=== PATIENT | male | born 1945 | race Caucasian/White ===

== ENCOUNTER 2016-08-21 08:17 | Inpatient (IN) | payer MEDICARE, BC ==
[2016-08-21] MEDS ORDERED: ASPIRIN 81 MG CHEW PO STA (08:41)
[2016-08-21] MEDS ORDERED: SODIUM CHLORIDE 0.9% 1,000 ML IV STA (08:42)
--- NOTE | 2016-08-21 08:44 | ED ---
General Adult HPI - General Source: patient, RN notes reviewed Mode of arrival: EMS Limitations: no limitations <Henrry Hogue - Last Filed: 08/21/16 08:56> <Ra Long - Last Filed: 08/21/16 14:43> - General Chief complaint: Chest Pain Stated complaint: chest pain Time Seen by Provider: 08/21/16 08:36 - History of Present Illness Initial comments: Patient 70-year-old male who presents emergency room today by EMS, chest pain times one day. He does admit the pain was off and on yesterday. States he woke up this morning having chest pain. States it as "sharp". States does radiate to the left arm across his chest. He does feel similar to a "heart attack" that he had in the past. Admits to occasional nausea. Patient denies any other symptoms or complaints. Patient denies any recent fever, chills, shortness of breath, back pain, abdominal pain, nausea or vomiting, numbness or tingling, dysuria or hematuria, constipation or diarrhea, headaches or visual changes, or any other complaints. (Henrry Hogue) - Related Data Home Medications Medication Instructions Recorded Confirmed Acetaminophen-Codeine 300-30mg 1 - 2 tab PO Q6H PRN 08/21/16 08/21/16 [Tylenol #3] Acyclovir 400 mg PO 5XD 08/21/16 08/21/16 Atorvastatin [Lipitor] 20 mg PO DAILY 08/21/16 08/21/16 Lisinopril [Prinivil] 5 mg PO DAILY 08/21/16 08/21/16 Metoprolol Tartrate [Lopressor] 25 mg PO BID 08/21/16 08/21/16 Allergies Allergy/AdvReac Type Severity Reaction Status Date / Time No Known Allergies Allergy Verified 08/21/16 10:55 Review of Systems ROS Other: All systems not noted in ROS Statement are negative. <Henrry Hogue - Last Filed: 08/21/16 08:56> ROS Other: All systems not noted in ROS Statement are negative. <Ra Long - Last Filed: 08/21/16 14:43> ROS Statement: Those systems with pertinent positive or pertinent negative responses have been documented in the HPI. Past Medical History Past Medical History: Chest Pain / Angina, Myocardial Infarction ([place]) History of Any Multi-Drug Resistant Organisms: None Reported Additional Past Surgical History / Comment(s): chest surgery, pt poor historian Past Psychological History: No Psychological Hx Reported Smoking Status: Former smoker Past Alcohol Use History: Occasional Past Drug Use History: None Reported <Henrry Hogue - Last Filed: 08/21/16 08:56> General Exam Limitations: no limitations <Henrry Hogue - Last Filed: 08/21/16 08:56> <Ra Long - Last Filed: 08/21/16 14:43> - General Exam Comments Initial Comments: General: The patient is awake and alert, in no distress. Cachectic appearance Eye: Pupils are equal, round and reactive to light, extra-ocular movements are intact. No nystagmus. There is normal conjunctiva bilaterally. No signs of icterus. Ears, nose, mouth and throat: There are moist mucous membranes and no oral lesions. Neck: The neck is supple, there is no tenderness or JVD. Cardiovascular: Jewett excavatum. There is a regular rate and rhythm. No murmur, rub or gallop is appreciated. Respiratory: Lungs are clear to auscultation, respirations are non-labored, breath sounds are equal. No wheezes, stridor, rales, or rhonchi. Gastrointestinal: [Soft, non-distended, non-tender abdomen without masses or organomegaly noted. There is no rebound or guarding present. No CVA tenderness. Bowel sounds are unremarkable.] Musculoskeletal: Normal ROM, no tenderness. Strength 5/5. Sensation intact. Pulses equal bilaterally 2+. Neurological: A&O x 3. CN II-XII intact, There are no obvious motor or sensory deficits. Coordination appears grossly intact. Speech is normal. Skin: Skin is warm and dry and no rashes or lesions are noted. Psychiatric: Cooperative, appropriate mood & affect, normal judgment. (Henrry Hogue) Course <Henrry Hogue - Last Filed: 08/21/16 08:56> <Ra Long - Last Filed: 08/21/16 14:43> Vital Signs 08/21/16 08/21/16 08/21/16 08:28 08:48 09:00 Temperature 96.9 F L Pulse Rate 99 114 H 111 H Pulse Rate [ 107 H [place] ] Respiratory 18 18 18 Rate Blood Pressure 84/47 134/67 128/64 O2 Sat by Pulse 100 100 100 Oximetry 08/21/16 08/21/16 08/21/16 09:02 10:00 11:00 Temperature Pulse Rate 111 H 108 H 108 H Pulse Rate [ [place] ] Respiratory 18 18 18 Rate Blood Pressure 128/64 112/64 110/63 O2 Sat by Pulse 100 98 97 Oximetry 08/21/16 08/21/16 08/21/16 12:00 12:03 12:16 Temperature Pulse Rate 110 H 112 H 110 H Pulse Rate [ [place] ] Respiratory 18 16 Rate Blood Pressure 125/61 O2 Sat by Pulse 97 Oximetry 08/21/16 13:00 Temperature Pulse Rate 110 H Pulse Rate [ [place] ] Respiratory 18 Rate Blood Pressure 145/69 O2 Sat by Pulse 98 Oximetry - Reevaluation(s) Reevaluation #1: 08/21/16 08:48 patient's repeat blood pressure taken by myself 134/67. He does admit to chest pain. Patient poor historian. Further information provided by nurse she spoke with EMS they did give sublingual nitro glycerin tab. They did also give aspirin. Patient still experiencing chest pain. Will Be given another sublingual nitro and reevaluated. Labs currently pending. EKG shows sinus tachycardia with occasional PVCs but no ST changes. (Henrry Hogue) EKG Findings - EKG Comments: EKG Findings:: EKG performed at 0851: Shows sinus tachycardia with PVCs. Ventricular rate 111 bpm. ID interval 120. QRS 102. QT/QTC 360/489. No acute ST changes. <Henrry Hogue - Last Filed: 08/21/16 08:56> Medical Decision Making <Henrry Hogue - Last Filed: 08/21/16 08:56> - Lab Data Result diagrams: 08/21/16 08:59 08/21/16 08:59 <Ra Long - Last Filed: 08/21/16 14:43> - Medical Decision Making Patient reevaluated and resting comfortably in bed. No complaints at this time except for chronic pain which he takes Tylenol with codeine. Patient and family updated on results and plan. Patient does meet sepsis criteria diagnosed at 2:35 PM. IV antibiotics will be ordered. Lactic acid has been added. Case discussed in detail with Dr. Mcdaniel, who will admit for Dr. Rogers. ( Ra Long) - Lab Data Lab Results 08/21/16 08/21/16 08/21/16 Range/Units 08:59 08:59 08:59 WBC 19.9 H (3.8-10.6) k/uL RBC 3.77 L (4.30-5.90) m/uL Hgb 11.9 L (13.0-17.5) gm/dL Hct 36.4 L (39.0-53.0) % MCV 96.6 (80.0-100.0) fL MCH 31.6 (25.0-35.0) pg MCHC 32.7 (31.0-37.0) g/dL RDW 14.9 (11.5-15.5) % Plt Count 269 (150-450) k/uL Neutrophils % 87 % Lymphocytes % 3 % Monocytes % 7 % Eosinophils % 0 % Basophils % 0 % Neutrophils # 17.3 H (1.3-7.7) k/uL Lymphocytes # 0.6 L (1.0-4.8) k/uL Monocytes # 1.4 H (0-1.0) k/uL Eosinophils # 0.0 (0-0.7) k/uL Basophils # 0.0 (0-0.2) k/uL Manual Slide Review Performed Poikilocytosis (manual Present PT (9.0-12.0) sec INR (<1.1) APTT (22.0-30.0) sec D-Dimer (<0.60) mg/L FEU Sodium 134 L (137-145) mmol/L Potassium 4.6 (3.5-5.1) mmol/L Chloride 102 (98-107) mmol/L Carbon Dioxide 14 L (22-30) mmol/L Anion Gap 18 mmol/L BUN 86 H* (9-20) mg/dL Creatinine 3.54 H (0.66-1.25) mg/dL Est GFR (MDRD) Af Amer 21 (>60 ml/min/1.73 sqM) Est GFR (MDRD) Non-Af 17 (>60 ml/min/1.73 sqM) Glucose 82 (74-99) mg/dL Calcium 8.7 (8.4-10.2) mg/dL Magnesium 2.8 H (1.6-2.3) mg/dL Total Bilirubin 0.6 (0.2-1.3) mg/dL AST 74 H (17-59) U/L ALT 36 (21-72) U/L Alkaline Phosphatase 126 (38-126) U/L Total Creatine Kinase 579 H (55-170) U/L CK-MB (CK-2) 12.9 H* (0.0-2.4) ng/mL CK-MB (CK-2) Rel Index 2.2 Troponin I 0.013 (0.000-0.034) ng/mL NT-Pro-B Natriuret Pep pg/mL Total Protein 6.5 (6.3-8.2) g/dL Albumin 2.9 L (3.5-5.0) g/dL Urine Color Urine Appearance (Clear) Urine pH (5.0-8.0) Ur Specific [place] (1.001-1.035) Urine Protein (Negative) Urine Glucose (UA) (Negative) Urine Ketones (Negative) Urine Blood (Negative) Urine Nitrite (Negative) Urine Bilirubin (Negative) Urine Urobilinogen (<2.0) mg/dL Ur Leukocyte Esterase (Negative) Urine RBC (0-5) /hpf Urine WBC (0-5) /hpf Urine WBC Clumps (None) /hpf Ur Squamous Epith Cells (0-4) /hpf Urine Bacteria (None) /hpf Hyaline Casts (0-2) /lpf Urine Mucus (None) /hpf 08/21/16 08/21/16 08/21/16 Range/Units 08:59 08:59 08:59 WBC (3.8-10.6) k/uL RBC (4.30-5.90) m/uL Hgb (13.0-17.5) gm/dL Hct (39.0-53.0) % MCV (80.0-100.0) fL MCH (25.0-35.0) pg MCHC (31.0-37.0) g/dL RDW (11.5-15.5) % Plt Count (150-450) k/uL Neutrophils % % Lymphocytes % % Monocytes % % Eosinophils % % Basophils % % Neutrophils # (1.3-7.7) k/uL Lymphocytes # (1.0-4.8) k/uL Monocytes # (0-1.0) k/uL Eosinophils # (0-0.7) k/uL Basophils # (0-0.2) k/uL Manual Slide Review Poikilocytosis (manual PT 9.8 (9.0-12.0) sec INR 1.0 (<1.1) APTT 27.9 (22.0-30.0) sec D-Dimer 5.58 H (<0.60) mg/L FEU Sodium (137-145) mmol/L Potassium (3.5-5.1) mmol/L Chloride (98-107) mmol/L Carbon Dioxide (22-30) mmol/L Anion Gap mmol/L BUN (9-20) mg/dL Creatinine (0.66-1.25) mg/dL Est GFR (MDRD) Af Amer (>60 ml/min/1.73 sqM) Est GFR (MDRD) Non-Af (>60 ml/min/1.73 sqM) Glucose (74-99) mg/dL Calcium (8.4-10.2) mg/dL Magnesium (1.6-2.3) mg/dL Total Bilirubin (0.2-1.3) mg/dL AST (17-59) U/L ALT (21-72) U/L Alkaline Phosphatase (38-126) U/L Total Creatine Kinase (55-170) U/L CK-MB (CK-2) (0.0-2.4) ng/mL CK-MB (CK-2) Rel Index Troponin I (0.000-0.034) ng/mL NT-Pro-B Natriuret Pep 39561 pg/mL Total Protein (6.3-8.2) g/dL Albumin (3.5-5.0) g/dL Urine Color Urine Appearance (Clear) Urine pH (5.0-8.0) Ur Specific [place] (1.001-1.035) Urine Protein (Negative) Urine Glucose (UA) (Negative) Urine Ketones (Negative) Urine Blood (Negative) Urine Nitrite (Negative) Urine Bilirubin (Negative) Urine Urobilinogen (<2.0) mg/dL Ur Leukocyte Esterase (Negative) Urine RBC (0-5) /hpf Urine WBC (0-5) /hpf Urine WBC Clumps (None) /hpf Ur Squamous Epith Cells (0-4) /hpf Urine Bacteria (None) /hpf Hyaline Casts (0-2) /lpf Urine Mucus (None) /hpf 08/21/16 Range/Units 11:20 WBC (3.8-10.6) k/uL RBC (4.30-5.90) m/uL Hgb (13.0-17.5) gm/dL Hct (39.0-53.0) % MCV (80.0-100.0) fL MCH (25.0-35.0) pg MCHC (31.0-37.0) g/dL RDW (11.5-15.5) % Plt Count (150-450) k/uL Neutrophils % % Lymphocytes % % Monocytes % % Eosinophils % % Basophils % % Neutrophils # (1.3-7.7) k/uL Lymphocytes # (1.0-4.8) k/uL Monocytes # (0-1.0) k/uL Eosinophils # (0-0.7) k/uL Basophils # (0-0.2) k/uL Manual Slide Review Poikilocytosis (manual PT (9.0-12.0) sec INR (<1.1) APTT (22.0-30.0) sec D-Dimer (<0.60) mg/L FEU Sodium (137-145) mmol/L Potassium (3.5-5.1) mmol/L Chloride (98-107) mmol/L Carbon Dioxide (22-30) mmol/L Anion Gap mmol/L BUN (9-20) mg/dL Creatinine (0.66-1.25) mg/dL Est GFR (MDRD) Af Amer (>60 ml/min/1.73 sqM) Est GFR (MDRD) Non-Af (>60 ml/min/1.73 sqM) Glucose (74-99) mg/dL Calcium (8.4-10.2) mg/dL Magnesium (1.6-2.3) mg/dL Total Bilirubin (0.2-1.3) mg/dL AST (17-59) U/L ALT (21-72) U/L Alkaline Phosphatase (38-126) U/L Total Creatine Kinase (55-170) U/L CK-MB (CK-2) (0.0-2.4) ng/mL CK-MB (CK-2) Rel Index Troponin I (0.000-0.034) ng/mL NT-Pro-B Natriuret Pep pg/mL Total Protein (6.3-8.2) g/dL Albumin (3.5-5.0) g/dL Urine Color Yellow Urine Appearance Cloudy (Clear) Urine pH 5.5 (5.0-8.0) Ur Specific [place] 1.011 (1.001-1.035) Urine Protein 1+ H (Negative) Urine Glucose (UA) Negative (Negative) Urine Ketones 1+ H (Negative) Urine Blood Small H (Negative) Urine Nitrite Negative (Negative) Urine Bilirubin Negative (Negative) Urine Urobilinogen <2.0 (<2.0) mg/dL Ur Leukocyte Esterase Large H (Negative) Urine RBC 5 (0-5) /hpf Urine WBC 127 H (0-5) /hpf Urine WBC Clumps Many H (None) /hpf Ur Squamous Epith Cells 1 (0-4) /hpf Urine Bacteria Rare H (None) /hpf Hyaline Casts 1 (0-2) /lpf Urine Mucus Rare H (None) /hpf Disposition <Henrry Hogue - Last Filed: 08/21/16 08:56> <Ra Long - Last Filed: 08/21/16 14:43> Clinical Impression: Chest pain, Renal failure, acute, Sepsis, Urinary tract infection Disposition: ADMITTED IP TO THIS HOSP Condition: Serious
[2016-08-21] MEDS ORDERED: NITROGLYCERIN SL TABS 0.4 MG TAB SUBLINGUAL PRN ×2 (08:55→14:43)
[2016-08-21 09:22] LABS: Basophils % (A) 0 %; CH 31.2; CHCM 32.5; Eosinophils % (A) 0 %; HCT 36.4 % (39.0-53.0); HDW 2.39; HGB 11.9 gm/dL (13.0-17.5); Luc # (Auto) 0.66; Luc % (Auto) 3; Lymphocytes # (A) 0.6 k/uL (1.0-4.8); Lymphocytes % (A) 3 %; MCH 31.6 pg (25.0-35.0); MCHC 32.7 g/dL (31.0-37.0); MCV 96.6 fL (80.0-100.0); Mean Platelet Volume 8.2; Monocytes # (A) 1.4 k/uL (0-1.0); Monocytes % (A) 7 %; Neutrophils # (A) 17.3 k/uL (1.3-7.7); Neutrophils % (A) 87 %; RBC 3.77 m/uL (4.30-5.90); RDW 14.9 % (11.5-15.5); WBC 19.9 k/uL (3.8-10.6); WBC (Perox) 19.32
[2016-08-21 09:26] LABS: Partial Thromboplastin Time 27.9 sec (22.0-30.0); Prothrombin Time 9.8 sec (9.0-12.0)
[2016-08-21 09:30] LABS: Calcium 8.7 mg/dL (8.4-10.2); Magnesium 2.8 mg/dL (1.6-2.3); Potassium 4.6 mmol/L (3.5-5.1); Total Bilirubin 0.6 mg/dL (0.2-1.3); Total Protein 6.5 g/dL (6.3-8.2)
--- NOTE | 2016-08-21 09:54 | XR ---
EXAMINATION TYPE: XR chest 2V DATE OF EXAM: 08/21/2016 9:36 AM COMPARISON: NONE HISTORY: Chest pain TECHNIQUE: Frontal and lateral views of the chest are obtained. FINDINGS: There are overlying cardiac leads. The heart is enlarged. No pneumothorax or pleural effus ion. Right costophrenic angle is not included on the exam. There may be some minimal basilar atelecta sis. Patient is rotated. Prominent lung volumes may be indicative of underlying COPD. IMPRESSION: Heart size may be accentuated by rotation. Some minimal basilar atelectasis is suspected , follow-up as indicated.
[2016-08-21 09:57] LABS: Troponin I 0.013 ng/mL (0.000-0.034)
[2016-08-21 10:04] LABS: Creatine Kinase MB 12.9 ng/mL (0.0-2.4)
[2016-08-21 10:24] LABS: Manual Review Performed
[2016-08-21] MEDS ORDERED: IPRATROPIUM-ALBUTEROL 3 ML NEB INHALATION STA (11:09)
[2016-08-21 13:50] LABS: Appearance,Urine Cloudy (Clear); Bacteria,Urine Rare /hpf; Bilirubin,Urine Negative (Negative); Glucose,Urine (UA) Negative (Negative); Ketones,Urine 1+ (Negative); Leukocyte Esterase,Urine Large (Negative); Mucus,Urine Rare /hpf; Nitrite,Urine Negative (Negative); PH, Urine 5.5 (5.0-8.0); Particle Count 19766; Protein,Urine 1+ (Negative); RBC,Urine 5 /hpf (0-5); Specific Gravity,Urine 1.011 (1.001-1.035); Squamous Epithelial Cell,Urine 1 /hpf (0-4); UA Billing (MACRO vs. MICRO) MICRO; Urobilinogen,Urine <2.0 mg/dL (<2.0); WBC,Urine 127 /hpf (0-5)
--- NOTE | 2016-08-21 14:29 | NM ---
EXAMINATION TYPE: NM pul vent and perfuse DATE OF EXAM: 08/21/2016 2:01 PM COMPARISON: Chest x-ray 08/21/2016 HISTORY: Chest pain TECHNIQUE: Utilizing inhalation of 70.5 mCi Tc 99m DTPA aerosol and intravenous injection of 5.2 mCi of Tc 99m MAA, ventilation and perfusion images are acquired post injection in multiple projections. FINDINGS: Normal radiotracer distribution is noted in the lungs. There is no evidence of mismatched defects. IMPRESSION: Low probability for acute pulmonary embolism.
[2016-08-21] MEDS ORDERED: Acetaminophen-Codeine 300-30mg TAB PO STA (14:42)
[2016-08-21 15:51] LABS: Creatine Kinase 788 U/L (55-170)
[2016-08-21 16:03] LABS: Troponin I <0.012 ng/mL (0.000-0.034)
[2016-08-21 16:09] LABS: Creatine Kinase MB 15.6 ng/mL (0.0-2.4)
[2016-08-21 16:53] VITALS: BMI 16.6
[2016-08-21] MEDS: METOPROLOL TARTRATE 25 MG TAB PO SCH (19:54)
[2016-08-21] MEDS ORDERED: ATORVASTATIN 20 MG TAB PO SCH (21:00)
[2016-08-21] MEDS: NITROGLYCERIN OINT 1 INCH/GM PACKET TOPICAL SCH (21:14)
[2016-08-21 22:01] LABS: Troponin I 0.021 ng/mL (0.000-0.034)
[2016-08-21 22:06] LABS: Creatine Kinase MB 19.7 ng/mL (0.0-2.4)
[2016-08-22] MEDS: Acetaminophen-Codeine 300-30mg TAB PO PRN ×2 (00:20→06:27)
[2016-08-22] MEDS: NITROGLYCERIN OINT 1 INCH/GM PACKET TOPICAL SCH ×2 (00:21→09:27)
[2016-08-22] MEDS ORDERED: THIAMINE 100 MG/ML 2 ML VIAL IM STA (04:55)
[2016-08-22] MEDS ORDERED: LORazepam 2 MG/ML SYRINGE IV PRN ×3 (04:55)
[2016-08-22] MEDS ORDERED: HEPARIN SODIUM,PORCINE 5,000 UNIT/ML 1 ML VIAL SQ SCH ×2 (06:45→08:00)
[2016-08-22] MEDS ORDERED: SODIUM CHLORIDE 0.9% 1,000 ML IV SCH (06:45)
[2016-08-22] MEDS ORDERED: HEPARIN SODIUM,PORCINE 5,000 UNIT/ML 1 ML VIAL IV PRN (07:18)
[2016-08-22] MEDS ORDERED: HEPARIN SODIUM,PORCINE 5,000 UNIT/ML 1 ML VIAL IV ONE (07:18)
[2016-08-22] MEDS ORDERED: HEPARIN SODIUM,PORCINE/D5W PMX 25,000 UNIT in DEXTROSE/WATER 1 500ML.BAG IV SCH (07:30)
[2016-08-22 07:35] LABS: Calcium 9.1 mg/dL (8.4-10.2); Potassium 4.6 mmol/L (3.5-5.1)
[2016-08-22 07:50] LABS: Basophils % (A) 0 %; CHCM 31.5; Eosinophils % (A) 0 %; HCT 39.2 % (39.0-53.0); HDW 2.54; HGB 12.3 gm/dL (13.0-17.5); Luc # (Auto) 0.28; Luc % (Auto) 2; Lymphocytes % (A) 5 %; MCHC 31.3 g/dL (31.0-37.0); Macrocytosis Slight; Mean Platelet Volume 9.3; Monocytes # (A) 0.6 k/uL (0-1.0); Monocytes % (A) 3 %; Neutrophils # (A) 17.4 k/uL (1.3-7.7); Neutrophils % (A) 90 %; RBC 3.96 m/uL (4.30-5.90); WBC 19.3 k/uL (3.8-10.6)
[2016-08-22 08:17] LABS: INR 0.9 (<1.1); Partial Thromboplastin Time 29.3 sec (22.0-30.0); Prothrombin Time 9.7 sec (9.0-12.0)
[2016-08-22] MEDS ORDERED: WATER FOR INJECTION, STERILE 1,000 ML with SODIUM ACETATE 150 MEQ IV SCH ×2 (08:45)
[2016-08-22] MEDS: METOPROLOL TARTRATE 25 MG TAB PO SCH (08:46)
--- NOTE | 2016-08-22 08:47 | P.NPCON ---
History of Present Illness - Reason for Consult acute renal failure - History of Present Illness Reason for consultation: Acute kidney injury History of present illness: Patient is a 70-year-old male seen in renal consultation for acute kidney injury. Unclear as to what his baseline renal function is. His creatinine was 3.54 on admission yesterday and is 3.40 today. He is also extremely acidotic with bicarb level of 10 this morning. Patient presented to the hospital with chest pain. Initially his blood pressure was documented as 8447. He did receive IV fluids and is currently maintained on normal saline at 100 mL an hour. Hemodynamically he's been stable with systolic blood pressure in the 130s. Patient has history of heavy tobacco as well as alcohol abuse. He 's been drinking 12 pack daily. He is not a very reliable historian. He has been voiding. He went for a lower extremity ultrasound this morning and had a wet brief when he returned. No hematuria. He was maintained on lisinopril as an outpatient which is currently held. His home medication also has acyclovir listed for 5 days total unclear as to why he was taking it. No vomiting or diarrhea. I don't see NSAIDs listed his home medications. Vital signs are stable. General: The patient appeared well nourished and normally developed. HEENT: Head exam is unremarkable. Neck is without jugular venous distension. LUNGS: Lungs are clear to auscultation and percussion. Breath sounds decreased. HEART: Rate and Rhythm are regular. First and second heart sounds normal. No murmurs, rubs or gallops. ABDOMEN: Abdominal exam reveals normal bowel sounds. Non-tender and non- distended. No evidence of peritonitis. EXTREMITITES: No clubbing, cyanosis, or edema. Past Medical History Past Medical History: Coronary Artery Disease (CAD), Chest Pain / Angina, Heart Failure, Myocardial Infarction ([place]) Additional Past Medical History / Comment(s): PVD Last Myocardial Infarction Date:: YEARS AGO. History of Any Multi-Drug Resistant Organisms: None Reported Past Surgical History: Back Surgery, Heart Catheterization Additional Past Surgical History / Comment(s): chest surgery, pt poor historian Past Anesthesia/Blood Transfusion Reactions: No Reported Reaction Past Psychological History: No Psychological Hx Reported Smoking Status: Former smoker Past Alcohol Use History: Occasional Past Drug Use History: None Reported - Past Family History Mother Family Medical History: Dementia Father Family Medical History: Myocardial Infarction ([place]) Medications and Allergies Home Medications Medication Instructions Recorded Confirmed Type Acetaminophen-Codeine 300-30mg 1 - 2 tab PO Q6H PRN 08/21/16 08/21/16 History [Tylenol #3] Acyclovir 400 mg PO 5XD 08/21/16 08/21/16 History Atorvastatin [Lipitor] 20 mg PO DAILY 08/21/16 08/21/16 History Lisinopril [Prinivil] 5 mg PO DAILY 08/21/16 08/21/16 History Metoprolol Tartrate [Lopressor] 25 mg PO BID 08/21/16 08/21/16 History Allergies Allergy/AdvReac Type Severity Reaction Status Date / Time No Known Allergies Allergy Verified 08/21/16 10:55 Physical Exam Vitals: Vital Signs Temp Pulse Pulse Pulse Resp BP BP 08/22/16 03:46 96.8 F L 107 H 16 131/56 08/22/16 00:00 97 F L 110 H 16 138/68 08/21/16 19:34 97 F L 120 H 16 136/63 08/21/16 16:35 96.9 F L 118 H 18 129/51 08/21/16 16:17 97.1 F L 120 H 18 101/53 08/21/16 15:45 97.1 F L 125 H 18 119/56 08/21/16 14:51 106 H 18 138/58 Pulse Ox 08/22/16 03:46 96 08/22/16 00:00 97 08/21/16 19:34 97 08/21/16 16:35 97 08/21/16 16:17 97 08/21/16 15:45 97 08/21/16 14:51 99 Intake and Output 08/21/16 08/22/16 08/22/16 22:59 06:59 14:59 Intake Total 40 Output Total 200 Balance 40 -200 Intake: Amount of Fluid Infused ( 40 ml) Output: Urine 200 Other: Voiding Method Urinal Urinal # Voids 0 Weight 45.359 kg 37 kg Results - Lab Results Most recent lab results Calcium 9.1 mg/dL (8.4-10.2) 08/22/16 06:15 Magnesium 2.8 mg/dL (1.6-2.3) H 08/21/16 08:59 08/22/16 06:15 08/22/16 06:15 Assessment and Plan Plan: Assessment: #1. Nonoliguric acute kidney injury secondary to ischemic ATN secondary to hypotension and further worsened with use of RICHARD inhibitor. Creatinine 3.54 on admission and mildly improved to 3.4 today. Unclear as to what his baseline renal function is. Rule out urinary retention. #2. Anion gap metabolic acidosis secondary to acute kidney injury as well as hypochloremic acidosis from IV fluids. #3. Peripheral vascular disease. Patient underwent lower extremity Doppler as well as CAT scan without contrast which apparently reveals poor blood flow from left knee down. #4. Urinary tract infection. Plan: Discontinue normal saline. Start sodium bicarbonate drip to be run at 100 mL an hour. Check renal ultrasound. Follow-up urine culture. Maintain Antibiotics. Avoid nephrotoxic agents and hypotensive episodes. Check bladder scan. To insert Hazel catheter if greater than 250 mL present. Also check urine eosinophils. Repeat electrolytes in the morning. Thank you for the consultation. I will continue to follow the patient with you during his hospital stay.
--- NOTE | 2016-08-22 08:52 | CT ---
EXAMINATION TYPE: CT lower extremity LT wo con DATE OF EXAM: 08/22/2016 8:22 AM COMPARISON: NONE HISTORY: Compartment Syndrome CT DLP: 1306 mGycm Automated exposure control for dose reduction was used. TECHNIQUE: Contiguous axial CT slices were obtained of the proximal left thigh. Coronal and sagittal reformats were obtained for review. FINDINGS: There is no evidence of fracture or dislocation. Moderate calcific atherosclerosis is seen of the lef t common femoral artery and its branches. There is a small suprapatellar joint effusion and mild prep atellar edema. There is subtle fascial hyperemia of the lateral and anterior compartments evaluation for overlying skin thickening and cellulitis is limited due to the paucity of overlying fat. No sizab le fluid collection is seen. There are no radiopaque foreign bodies or subcutaneous emphysema. Mild b icompartmental osteoarthritic changes are seen of both femoral-tibial joints. Mild osteoporotic man es are seen of the femoral necks. IMPRESSION: 1. SUBTLE FASCIAL THICKENING OF THE ANTERIOR AND LATERAL COMPARTMENTS OF THE THIGH. CORRELATE FOR INC REASED TISSUE PRESSURES IN A PATIENT WITH CLINICAL CONCERN FOR COMPARTMENT SYNDROME. ALTERNATIVELY MY OSITIS, FASCIITIS, OR CELLULITIS COULD ALSO GIVE THIS APPEARANCE. 2. NO EVIDENCE OF FRACTURE OR DISLOCATION. MILD OSTEOPOROTIC CHANGES AND BILATERAL BICOMPARTMENTAL OS TEOARTHRITIC CHANGES. 3. MODERATE PERIPHERAL VASCULAR DISEASE.
--- NOTE | 2016-08-22 08:54 | US ---
EXAMINATION TYPE: US venous doppler duplex LE LT DATE OF EXAM: 08/22/2016 7:32 AM COMPARISON: NONE CLINICAL HISTORY: pain and difficultly moving extremity. Left leg is mottled and discolored, toes are turning black. SIDE PERFORMED: Left TECHNIQUE: The lower extremity deep venous system is examined utilizing real time linear array sonog bruno with graded compression, doppler sonography and color-flow sonography. VESSELS IMAGED: External Iliac Vein (EIV) Common Femoral Vein Deep Femoral Vein Greater Saphenous Vein * Femoral Vein Popliteal Vein (* superficial vessels) Left Leg: Negative for DVTas visualized, limited study due to patient's severe pain in left leg, pat ient unable to tolerate compression distal fem, and unable to bend knee to obtain compression images. IMPRESSION: Grayscale, color doppler, spectral doppler imaging performed of the deep veins of the lo wer extremities. There is normal flow, compressibility, vascular waveforms bilaterally. No evidence for deep venous thrombosis of the left lower extremity although the senior controls technician notes the exam was li mited due to the patient's severe left leg pain.
[2016-08-22] MEDS ORDERED: ASPIRIN 325 MG TAB PO SCH (09:00)
--- NOTE | 2016-08-22 09:35 | P.GSCN ---
History of Present Illness Consult date: 08/22/16 Reason for Consult: ischemia left leg (acute on chronic) Requesting physician: Ascencion Mcdaniel History of present illness: impression; 1. acute on chronic ischemia of left leg 2. severe CHF with reported EF=12%; pateint is non-compliant with life vest 3. severe metabolic derangements including severe acidosis, Stage IV CKD 4. 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 continue IV hydration and anticoagulation 2. patient is a candidate for tertiary care center evaluation and management HPI 70 y/o man, admitted 08/21/2016 for chest pain, urinary tract infection, dehydration, renal failure. Noted to have mottled left leg this am; according to nursing staff patient was to have a left leg stent placed "in [place]". Patient is not oriented to time, place, or person this am. Thinks he is in [facility], can't state his name, and thinks the year is 1971. CMHx, PSHx, Allergies, Habits; reviewed PE; AXOx0, cachexic HEENT: norocephalic, anicteric sclera, no JVD or bruits, trachea is midline, no thyromegaly or lymphadenopathy Lungs; clear bilaterally ABD; soft, non-tender, well-healed upper midline incision EXTR; right femoral pulse is palpable, left femoral pulse is not; doppler only; right popliteal and pedal pulses are not palpable, left popliteal and pedal pulses are not palpable, left leg is mottled from thigh to foot, unable to move left foot/leg; able to move right foot/leg; sensation to pain in left leg is intact Segmental studies demonstrates moderate right leg arterial occlusive disease. The left leg demonstrates no inflow with critical left leg ischemia. Past Medical History Past Medical History: Coronary Artery Disease (CAD), Chest Pain / Angina, Heart Failure, Myocardial Infarction ([place]) Additional Past Medical History / Comment(s): PVD Last Myocardial Infarction Date:: YEARS AGO. History of Any Multi-Drug Resistant Organisms: None Reported Past Surgical History: Back Surgery, Heart Catheterization Additional Past Surgical History / Comment(s): chest surgery, pt poor historian Past Anesthesia/Blood Transfusion Reactions: No Reported Reaction Past Psychological History: No Psychological Hx Reported Smoking Status: Former smoker Past Alcohol Use History: Occasional Past Drug Use History: None Reported - Past Family History Mother Family Medical History: Dementia Father Family Medical History: Myocardial Infarction ([place]) Medications and Allergies Home Medications Medication Instructions Recorded Confirmed Type Acetaminophen-Codeine 300-30mg 1 - 2 tab PO Q6H PRN 08/21/16 08/21/16 History [Tylenol #3] Acyclovir 400 mg PO 5XD 08/21/16 08/21/16 History Atorvastatin [Lipitor] 20 mg PO DAILY 08/21/16 08/21/16 History Lisinopril [Prinivil] 5 mg PO DAILY 08/21/16 08/21/16 History Metoprolol Tartrate [Lopressor] 25 mg PO BID 08/21/16 08/21/16 History Allergies Allergy/AdvReac Type Severity Reaction Status Date / Time No Known Allergies Allergy Verified 08/21/16 10:55 Surgical - Exam Vital Signs Temp Pulse Resp BP Pulse Ox 96.9 F L 99 18 84/47 100 08/21/16 08:28 08/21/16 08:28 08/21/16 08:28 08/21/16 08:28 08/21/16 08:28 Results - Labs 08/22/16 06:15 08/22/16 06:15 Abnormal Lab Results - Last 24 Hours (Table) 08/21/16 08/21/16 08/22/16 Range/Units 15:17 20:52 06:15 WBC (3.8-10.6) k/uL RBC (4.30-5.90) m/uL Hgb (13.0-17.5) gm/dL Neutrophils # (1.3-7.7) k/uL Chloride 108 H (98-107) mmol/L Carbon Dioxide 10 L* (22-30) mmol/L BUN 83 H* (9-20) mg/dL Creatinine 3.40 H (0.66-1.25) mg/dL Total Creatine Kinase 788 H 943 H (55-170) U/L CK-MB (CK-2) 15.6 H* 19.7 H* (0.0-2.4) ng/mL Triglycerides 160 H (<150) mg/dL HDL Cholesterol 27 L (40-60) mg/dL 08/22/16 08/22/16 Range/Units 06:15 06:15 WBC 19.3 H (3.8-10.6) k/uL RBC 3.96 L (4.30-5.90) m/uL Hgb 12.3 L (13.0-17.5) gm/dL Neutrophils # 17.4 H (1.3-7.7) k/uL Chloride (98-107) mmol/L Carbon Dioxide (22-30) mmol/L BUN (9-20) mg/dL Creatinine (0.66-1.25) mg/dL Total Creatine Kinase (55-170) U/L CK-MB (CK-2) 25.0 H* (0.0-2.4) ng/mL Triglycerides (<150) mg/dL HDL Cholesterol (40-60) mg/dL Microbiology - Last 24 Hours (Table) 08/21/16 15:37 Urine Culture - Preliminary Urine,Clean Catch Diabetes panel 08/22/16 Range/Units 06:15 Sodium 140 (137-145) mmol/L Potassium 4.6 (3.5-5.1) mmol/L Chloride 108 H (98-107) mmol/L Carbon Dioxide 10 L* (22-30) mmol/L BUN 83 H* (9-20) mg/dL Creatinine 3.40 H (0.66-1.25) mg/dL Glucose 81 (74-99) mg/dL Calcium 9.1 (8.4-10.2) mg/dL Triglycerides 160 H (<150) mg/dL HDL Cholesterol 27 L (40-60) mg/dL Calcium panel 08/22/16 Range/Units 06:15 Calcium 9.1 (8.4-10.2) mg/dL Pituitary panel 08/22/16 Range/Units 06:15 Sodium 140 (137-145) mmol/L Potassium 4.6 (3.5-5.1) mmol/L Chloride 108 H (98-107) mmol/L Carbon Dioxide 10 L* (22-30) mmol/L BUN 83 H* (9-20) mg/dL Creatinine 3.40 H (0.66-1.25) mg/dL Glucose 81 (74-99) mg/dL Calcium 9.1 (8.4-10.2) mg/dL Adrenal panel 08/22/16 Range/Units 06:15 Sodium 140 (137-145) mmol/L Potassium 4.6 (3.5-5.1) mmol/L Chloride 108 H (98-107) mmol/L Carbon Dioxide 10 L* (22-30) mmol/L BUN 83 H* (9-20) mg/dL Creatinine 3.40 H (0.66-1.25) mg/dL Glucose 81 (74-99) mg/dL Calcium 9.1 (8.4-10.2) mg/dL
[2016-08-22] MEDS ORDERED: CEFEPIME 1 GM in SODIUM CHLORIDE 0.9% 50 ML IVPB SCH (09:45)
[2016-08-22 10:02] VITALS: BP 117/54; PULSE 103; RESP 18; TEMP 96.9
--- NOTE | 2016-08-22 10:15 | P.HPIM ---
History of Present Illness H&P Date: 08/22/16 This is a 70-year-old gentleman who comes in to the emergency room with change in mental status over the last 2 days. Patient apparently has a history of CAD was recently diagnosed with congestive heart failure with ejection fraction less than 20%. Patient was discharged without any intervention with a LifeVest due to risk of VT and sudden cardiac Patient does have a history of PAD in the left lower extremity apparently was evaluated by interventional is at [facility] in [place] was told he has significant arterial disease and will benefit from arterial stenting. Patient however has not been stable hence no intervention was performed. Overnight patient started complaining of progressive worsening of pain in the left lower extremity this a.m. I was paged regarding worsening pain and change in physical exam with lower extremity showing signs of mottling and cold to touch. A stat computed tomography scan of the left lower extremity was ordered. Doppler pulses at bedside were only noted at the popliteal artery DP and PT were absent. Creatinine kinase has been trending up since admission. I did start the patient on heparin this a.m. Of note patient was also noted to have a anion gap metabolic acidosis with the kidney injury that appears to be prerenal at this time unsure of his baseline creatinine Patient's urinalysis does show leukocyte esterase and bacteria initially this was admitting diagnosis for his change in mental status Blood cultures at this time show gram-negative. Patient only answers a few questions not appropriate. Son is at bedside who states this is the new changes noted over to 3 days ago. Prior to that apparently patient was able to ambulate and have a conversation without any difficulty Review of Systems ROS unobtainable: due to mental status Past Medical History Past Medical History: Coronary Artery Disease (CAD), Chest Pain / Angina, Heart Failure, [place]ocardial Infarction ([place]) Additional Past Medical History / Comment(s): PVD Last Myocardial Infarction Date:: YEARS AGO. History of Any Multi-Drug Resistant Organisms: None Reported Past Surgical History: Back Surgery, Heart Catheterization Additional Past Surgical History / Comment(s): chest surgery, pt poor historian Past Anesthesia/Blood Transfusion Reactions: No Reported Reaction Past Psychological History: No Psychological Hx Reported Smoking Status: Former smoker Past Alcohol Use History: Occasional Past Drug Use History: None Reported - Past Family History Mother Family Medical History: Dementia Father Family Medical History: Myocardial Infarction ([place]) Medications and Allergies Home Medications Medication Instructions Recorded Confirmed Type Acetaminophen-Codeine 300-30mg 1 - 2 tab PO Q6H PRN 08/21/16 08/21/16 History [Tylenol #3] Acyclovir 400 mg PO 5XD 08/21/16 08/21/16 History Atorvastatin [Lipitor] 20 mg PO DAILY 08/21/16 08/21/16 History Lisinopril [Prinivil] 5 mg PO DAILY 08/21/16 08/21/16 History Metoprolol Tartrate [Lopressor] 25 mg PO BID 08/21/16 08/21/16 History Allergies Allergy/AdvReac Type Severity Reaction Status Date / Time No Known Allergies Allergy Verified 08/21/16 10:55 Physical Exam Vitals: Vital Signs Temp Pulse Pulse Pulse Resp BP BP 08/22/16 08:00 96.9 F L 103 H 18 117/54 08/22/16 03:46 96.8 F L 107 H 16 131/56 08/22/16 00:00 97 F L 110 H 16 138/68 08/21/16 19:34 97 F L 120 H 16 136/63 08/21/16 16:35 96.9 F L 118 H 18 129/51 08/21/16 16:17 97.1 F L 120 H 18 101/53 08/21/16 15:45 97.1 F L 125 H 18 119/56 08/21/16 14:51 106 H 18 138/58 Pulse Ox 08/22/16 08:00 97 08/22/16 03:46 96 08/22/16 00:00 97 08/21/16 19:34 97 08/21/16 16:35 97 08/21/16 16:17 97 08/21/16 15:45 97 08/21/16 14:51 99 Intake and Output 08/21/16 08/22/16 08/22/16 22:59 06:59 14:59 Intake Total 40 Output Total 200 Balance 40 -200 Intake: Amount of Fluid Infused ( 40 ml) Output: Urine 200 Other: Voiding Method Urinal Urinal Urinal # Voids 0 Weight 45.359 kg 37 kg Physical exam alert to self Neck is supple no JVD Lungs breath sounds are diminished no wheezing or rhonchi appreciated Heart slightly tachycardic. Systolic murmur is appreciated Abdomen is soft nontender no organomegaly bowel sounds are intact Neurologically moves all 4 extremities rest of the evaluation is deferred due to mental status changes Left lower extremity tender to palpation signs of mottling till the upper thigh palpable pulses of the popliteal artery significantly tender in the left upper thigh Results CBC & Chem 7: 08/22/16 06:15 08/22/16 06:15 Labs: Abnormal Lab Results - Last 24 Hours (Table) 08/21/16 08/21/16 08/22/16 Range/Units 15: 20:52 06:15 WBC (3.8-10.6) k/uL RBC (4.30-5.90) m/uL Hgb (13.0-17.5) gm/dL Neutrophils # (1.3-7.7) k/uL Chloride 108 H (98-107) mmol/L Carbon Dioxide 10 L* (22-30) mmol/L BUN 83 H* (9-20) mg/dL Creatinine 3.40 H (0.66-1.25) mg/dL Total Creatine Kinase 788 H 943 H (55-170) U/L CK-MB (CK-2) 15.6 H* 19.7 H* (0.0-2.4) ng/mL Triglycerides 160 H (<150) mg/dL HDL Cholesterol 27 L (40-60) mg/dL 08/22/16 08/22/16 Range/Units 06:15 06:15 WBC 19.3 H (3.8-10.6) k/uL RBC 3.96 L (4.30-5.90) m/uL Hgb 12.3 L (13.0-17.5) gm/dL Neutrophils # 17.4 H (1.3-7.7) k/uL Chloride (98-107) mmol/L Carbon Dioxide (22-30) mmol/L BUN (9-20) mg/dL Creatinine (0.66-1.25) mg/dL Total Creatine Kinase (55-170) U/L CK-MB (CK-2) 25.0 H* (0.0-2.4) ng/mL Triglycerides (<150) mg/dL HDL Cholesterol (40-60) mg/dL Microbiology - Last 24 Hours (Table) 08/21/16 15:37 Blood Culture - Final Blood 08/21/16 15:37 Urine Culture - Preliminary Urine,Clean Catch Thrombosis Risk Factor Assmnt - Choose All That Apply Any of the Below Risk Factors Present?: Yes Each Factor Represents 1 point: Sepsis (< 1month) Other Risk Factors: Yes Each Risk Factor Represents 2 Points: Age 61-74 years Other congenital or acquired thrombophilia - If yes, enter type in comment: No Thrombosis Risk Factor Assessment Total Risk Factor Score: 3 Thrombosis Risk Factor Assessment Level: Moderate Risk Assessment and Plan Plan: #1 sepsis with gram-negative bacteremia unknown underlying etiology #2 subacute arterial occlusion of the left lower extremity #3 acute metabolic encephalopathy secondary to above #4 PAD #5 CHF with EF less than 20% #6 CAD #7 ongoing tobacco use with greater than 2 pack smoking history #8 severe protein calorie malnutrition #9 history of hypertension 10 acute kidney injury with anion gap metabolic acidosis #11 rhabdomyolysis Plan Continue IV heparin. Patient was started on cefepime 1 g every 12 hours After discussion with vascular surgery patient be transferred to [facility] I did discuss with the admitting physician Dr Avelar. I spoke to the son was at bedside discussed that his clinical condition is unstable at this time Patient does have poor prognosis We'll transfer to higher level of care Sodium bicarb 1 50 mL per hour
--- NOTE | 2016-08-22 10:24 | P.CRDCN ---
History of Present Illness Consult date: 08/22/16 Chief complaint: Chest discomfort History of present illness: This is a pleasant 70-year-old gentleman who sees a mounter out of the town in left [facility] area with a past medical history significant for coronary artery disease documented on recent heart catheterization with unknown details at this point, severe ischemic cardiomyopathy according to the son, severe peripheral arterial disease, as well as hypertension, dyslipidemia, and chronic kidney disease, presented to the hospital complaining of chest discomfort. The patient is a poor historian and the story was taken from his son who is a bit side. The patient's son stated that the patient has not been feeding well lately and he has been experiencing left leg discomfort. He presented to the emergency room complaining of chest discomfort and was admitted to the hospital for further evaluation. He was noted to have discoloration of the left foot and left ankle with absence of the pulse. The patient was seen and evaluated by vascular surgeon and he was diagnosed with critical limb ischemia/acute limb ischemia and the decision was made toward possible transfer to [facility]. Currently the patient denies having any chest pain or discomfort and denies having any difficulty breathing. He is in normal sinus mechanism was a slight sinus tachycardia. The blood pressure has been within normal limits. He continues to be on anticoagulation using heparin. Past Medical History Past Medical History: Coronary Artery Disease (CAD), Chest Pain / Angina, Heart Failure, [place]ocardial Infarction ([place]) Additional Past Medical History / Comment(s): PVD Last Myocardial Infarction Date:: YEARS AGO. History of Any Multi-Drug Resistant Organisms: None Reported Past Surgical History: Back Surgery, Heart Catheterization Additional Past Surgical History / Comment(s): chest surgery, pt poor historian Past Anesthesia/Blood Transfusion Reactions: No Reported Reaction Past Psychological History: No Psychological Hx Reported Smoking Status: Former smoker Past Alcohol Use History: Occasional Past Drug Use History: None Reported - Past Family History Mother Family Medical History: Dementia Father Family Medical History: Myocardial Infarction ([place]) Medications and Allergies Home Medications Medication Instructions Recorded Confirmed Type Acetaminophen-Codeine 300-30mg 1 - 2 tab PO Q6H PRN 08/21/16 08/21/16 History [Tylenol #3] Acyclovir 400 mg PO 5XD 08/21/16 08/21/16 History Atorvastatin [Lipitor] 20 mg PO DAILY 08/21/16 08/21/16 History Lisinopril [Prinivil] 5 mg PO DAILY 08/21/16 08/21/16 History Metoprolol Tartrate [Lopressor] 25 mg PO BID 08/21/16 08/21/16 History Allergies Allergy/AdvReac Type Severity Reaction Status Date / Time No Known Allergies Allergy Verified 08/21/16 10:55 Physical Exam Vitals: Vital Signs Temp Pulse Pulse Pulse Resp BP BP 08/22/16 08:00 96.9 F L 103 H 18 117/54 08/22/16 03:46 96.8 F L 107 H 16 131/56 08/22/16 00:00 97 F L 110 H 16 138/68 08/21/16 19:34 97 F L 120 H 16 136/63 08/21/16 16:35 96.9 F L 118 H 18 129/51 08/21/16 16:17 97.1 F L 120 H 18 101/53 08/21/16 15:45 97.1 F L 125 H 18 119/56 08/21/16 14:51 106 H 18 138/58 Pulse Ox 08/22/16 08:00 97 08/22/16 03:46 96 08/22/16 00:00 97 08/21/16 19:34 97 08/21/16 16:35 97 08/21/16 16:17 97 08/21/16 15:45 97 08/21/16 14:51 99 Intake and Output 08/21/16 08/22/16 08/22/16 22:59 06:59 14:59 Intake Total 40 Output Total 200 Balance 40 -200 Intake: Amount of Fluid Infused ( 40 ml) Output: Urine 200 Other: Voiding Method Urinal Urinal Urinal # Voids 0 Weight 45.359 kg 37 kg - Constitutional General appearance: no acute distress - Respiratory Respiratory: bilateral: diminished - Cardiovascular Rhythm: regular Heart sounds: normal: S1, S2 Results 08/22/16 06:15 08/22/16 06:15 Cardiac Enzymes 08/21/16 08/21/16 08/22/16 Range/Units 15:17 20:52 06:15 CK-MB (CK-2) 15.6 H* 19.7 H* 25.0 H* (0.0-2.4) ng/mL Troponin I <0.012 0.021 (0.000-0.034) ng/mL Coagulation 08/22/16 Range/Units 06:15 PT 9.7 (9.0-12.0) sec APTT 29.3 (22.0-30.0) sec Lipids 08/22/16 Range/Units 06:15 Triglycerides 160 H (<150) mg/dL Cholesterol 115 (<200) mg/dL HDL Cholesterol 27 L (40-60) mg/dL CBC 08/22/16 Range/Units 06:15 WBC 19.3 H (3.8-10.6) k/uL RBC 3.96 L (4.30-5.90) m/uL Hgb 12.3 L (13.0-17.5) gm/dL Hct 39.2 (39.0-53.0) % Plt Count 275 (150-450) k/uL Comprehensive Metabolic Panel 08/22/16 Range/Units 06:15 Sodium 140 (137-145) mmol/L Potassium 4.6 (3.5-5.1) mmol/L Chloride 108 H (98-107) mmol/L Carbon Dioxide 10 L* (22-30) mmol/L BUN 83 H* (9-20) mg/dL Creatinine 3.40 H (0.66-1.25) mg/dL Glucose 81 (74-99) mg/dL Calcium 9.1 (8.4-10.2) mg/dL Current Medications Generic Name Dose Route Start Last Admin Trade Name Freq PRN Reason Stop Dose Admin Acetaminophen/Codeine Phosphate 2 each 08/21/16 18:26 08/22/16 06:27 Tylenol #3 PO 2 each Q6HR PRN Administration Pain Aspirin 325 mg 08/22/16 09:00 08/22/16 08:46 Aspirin PO 325 mg DAILY BETSY Administration Atorvastatin Calcium 20 mg 08/21/16 21:00 08/21/16 19:53 Lipitor PO 20 mg HS BETSY Administration Heparin Sodium (Porcine) 0 unit 08/22/16 07:18 Heparin IV PER PROTOCOL PRN Low PTT Protocol Heparin Sodium/Dextrose 25,000 500 mls @ 8.88 mls/hr 08/22/16 07:30 08/22/16 08:45 unit/ IV Solution IV 12 units/kg/hr .Q24H BETSY 8.88 mls/hr Protocol Administration 12 UNITS/KG/HR Sodium Acetate 150 meq/ 1,075 mls @ 150 mls/hr 08/22/16 08:45 08/22/16 09:55 Sterile Water IV 150 mls/hr .Q7H10M BETSY Administration Cefepime HCl 1 gm/ Sodium 50 mls @ 100 mls/hr 08/22/16 09:45 Chloride IVPB Q24HR BETSY Lorazepam 1 mg 08/22/16 04:55 Ativan IV Q2HR PRN CIWA 8 or 9 Lorazepam 1 mg 08/22/16 04:55 Ativan IV Q1HR PRN CIWA 10 to 15 Lorazepam 2 mg 08/22/16 04:55 Ativan IV Q1HR PRN CIWA 16 or higher Metoprolol Tartrate 25 mg 08/21/16 21:00 08/22/16 08:46 Lopressor PO 25 mg BID BETSY Administration Nitroglycerin 0.4 mg 08/21/16 14:43 Nitrostat SUBLINGUAL Q5M PRN Chest Pain Thiamine HCl 100 mg 08/22/16 17:00 Vitamin B-1 PO BID@1200,1700 BETSY Intake and Output 08/21/16 08/22/16 08/22/16 22:59 06:59 14:59 Intake Total 40 Output Total 200 Balance 40 -200 Intake: Amount of Fluid Infused ( 40 ml) Output: Urine 200 Other: Voiding Method Urinal Urinal Urinal # Voids 0 Weight 45.359 kg 37 kg 08/22/16 06:15 08/22/16 06:15 Assessment and Plan Plan: Assessment #1 critical limb ischemia/acute limb ischemia #2 severe underlying CAD #3 severe underlying PAD #4 severity ischemic cardiomyopathy #5 significant history of smoking Plan #1 continue the heparin IV #2 I am starting the patient on small dose of metoprolol to control the heart rate #3 we will continue following up with the patient if he is not going to be transferred
[2016-08-22] MEDS ORDERED: THIAMINE 100 MG TAB PO SCH (17:00)
--- NOTE | 2016-08-25 14:16 | P.ARTDOP ---
Arterial Doppler LOWER EXTREMITY ARTERIAL DOPPLER: DATE OF SERVICE: 08/22/2016 Reason for study: Ischemic left foot. Doppler waveforms: Multiphasic throughout on the right.. The left is atypical at the femoral level and not registered below Pulse volume recording: []. Pressure gradients: No pressures done on the left.. Ankle-brachial indices: 0.81 on the right.. Toe pressures: [] on the right, [] on the left Impression: Severe left femoral popliteal occlusive disease with possible suprafemoral component. Extremely poor perfusion at the toe level. Mild right SFA disease. Clinical correlation recommended..
== END 2016-08-22 11:30 | disposition short-term general hospital (02) | DRG 871 ==
LOC: EC 08:17 → 6SEL 14:43
PROVIDERS: ADMIT Internal Medicine; ATTEND Internal Medicine
DX: A41.50 Gram-negative sepsis, unspecified (principal); G93.41 Metabolic encephalopathy; N17.0 Acute kidney failure with tubular necrosis; E43 Unspecified severe protein-calorie malnutrition; R64 Cachexia; I50.9 Heart failure, unspecified; I13.0 Hypertensive heart and chronic kidney disease with heart failure and stage 1 through stage 4 chronic kidney disease, or unspecified chronic kidney disease; M62.82 Rhabdomyolysis; E87.2 Acidosis; N18.4 Chronic kidney disease, stage 4 (severe); N39.0 Urinary tract infection, site not specified; I70.202 Unspecified atherosclerosis of native arteries of extremities, left leg; E87.8 Other disorders of electrolyte and fluid balance, not elsewhere classified; F17.200 Nicotine dependence, unspecified, uncomplicated; G89.29 Other chronic pain; I25.10 Atherosclerotic heart disease of native coronary artery without angina pectoris; I25.5 Ischemic cardiomyopathy; I99.8 Other disorder of circulatory system; Z79.899 Other long term (current) drug therapy; I25.2 Old myocardial infarction; Z82.49 Family history of ischemic heart disease and other diseases of the circulatory system; Z91.19 Patient's noncompliance with other medical treatment and regimen
CPT/HCPCS: 36415; 71020; 78582; 80048; 80053; 80061; 81001; 82550; 82553; 83605; 83735; 83880; 84484; 85025; 85379; 85610; 85730; 87040; 87077; 87086; 87186; 93005; 93923; 94640; 96361; 96365; 99285